=== PATIENT | male | born 1990 | race African-American/Black ===

== ENCOUNTER 2018-12-05 15:46 | Emergency (ER) | payer SELFPAY ==
[~2018-12-05] VITALS: Ht 185.4 cm; Wt 81.6 kg
[2018-12-05] MEDS ORDERED: NKM (16:00)
[2018-12-05] MEDS ORDERED: Metoclopramide 10mg/2ml Inj IVP ONE (16:15)
--- NOTE | 2018-12-05 16:30 | NUR ---
ED Nurse Note: Patient walked in to ER, accompanied by spouse and kid, complaining of abdominal pain. Patient stated that he has been going to the bathroom for loose bowel movement. He stated that the last meal he ate was [employer]. According to the spouse she ates the same meal yesterday. Patient stated pain of 5/10. Nauseated but no episodes of vomiting. Denies abdmonal cramping. Bowel sounds presents in all quadrant. Patient temperature is slightly elevated.
[2018-12-05 17:12] LABS: ANION GAP 5 mmol/L (5-15); BLOOD UREA NITROGEN 11 mg/dL (7-18); CARBON DIOXIDE 30 MMOL/L (21-32); CHLORIDE 106 MMOL/L (98-107); CREATININE 1.2 MG/DL (0.55-1.30); POTASSIUM 4.2 MMOL/L (3.5-5.1); SODIUM 141 MMOL/L (136-145)
[2018-12-05 17:13] LABS: APPEARANCE,URINE CLEAR; BASOPHILS % (AUTO) 2.1 % (0.0-2.0); BILIRUBIN, URINE NEGATIVE (NEGATIVE); COLOR,URINE PALE YELLOW; EOSINOPHILS % (AUTO) 1.1 % (0.0-3.0); GLUCOSE, URINE (UA) NEGATIVE (NEGATIVE); HEMATOCRIT 48.1 % (42.0-52.0); KETONES,URINE NEGATIVE (NEGATIVE); LEUKOCYTE ESTERASE ,URINE NEGATIVE (NEGATIVE); LYMPHOCYTES % (AUTO) 37.8 % (20.0-45.0); MEAN CORPUSCULAR VOLUME 88 FL (80-99); MONOCYTES % (AUTO) 8.5 % (1.0-10.0); NEUTROPHILS % (AUTO) 50.5 % (45.0-75.0); NITRITE,URINE NEGATIVE (NEGATIVE); PH,URINE 7 (4.5-8.0); PLATELET COUNT 172 K/UL (150-450); PROTEIN,URINE NEGATIVE (NEGATIVE); RED BLOOD COUNT 5.47 M/UL (4.70-6.10); RED CELL DISTRIBUTION WIDTH 11.4 % (11.6-14.8); UROBILINOGEN,URINE 1 MG/DL (0.0-1.0); WHITE BLOOD COUNT 3.6 K/UL (4.8-10.8)
[2018-12-05 17:17] LABS: ALANINE AMINOTRANSFERASE 27 U/L (12-78); ALBUMIN 4.2 G/DL (3.4-5.0); ALBUMIN/GLOBULIN RATIO 1.2 (1.0-2.7); ALKALINE PHOSPHATASE 77 U/L (46-116); ASPARTATE AMINO TRANSFERASE 19 U/L (15-37); BILIRUBIN,TOTAL 0.5 MG/DL (0.2-1.0)
[2018-12-05] MEDS ORDERED: Omnipaque-300 100ml vial INJ PRN (17:30)
[2018-12-05 18:01] VITALS: BP 128/64
--- NOTE | 2018-12-05 18:50 | NUR ---
Kaya booker in EDM - 12/05/18 at 1909 by LUIS E ED Nurse Note: Blood/Urine sample collected and sent.
--- NOTE | 2018-12-05 18:56 | Diagnostic Imaging Report ---
Clinical Indication: Diffuse abdominal pain and tightening as well as bouts of nonbloody diarrhea, 7 out of 10 Technique: No oral contrast utilized, per emergency room physician request IV administration nonionic contrast. Venous phase spiral acquisition obtained through the abdomen and pelvis. Multiplanar reconstructions were generated. Total dose length product 1316 mGycm. CTDIvol(s) 22 mGy. Dose reduction achieved using automated exposure control Comparison: none Findings: The appendix is normal. No evidence of diverticulosis or diverticulitis. No small bowel distention. There is trace fluid in the pelvis No free intraperitoneal gas is evident. The distal esophagus, stomach, duodenum are unremarkable. The liver demonstrates scattered subcentimeter low-attenuation lesions which are too small to characterize. Gallbladder, bile ducts, pancreas, spleen, adrenals, kidneys are all unremarkable. No pelvic mass or adenopathy. No retroperitoneal or mesenteric mass or adenopathy. The included lung bases are clear. The bones are unremarkable.. Impression: Trace free pelvic fluid, of uncertain significance but not physiologic in a male patient Otherwise unremarkable This agrees with the preliminary interpretation provided overnight by [facility]. The CT scanner at [facility] is accredited by the [employer] and the scans are performed using protocols designed to limit radiation exposure to as low as reasonably achievable to attain images of sufficient resolution adequate for diagnostic evaluation.
--- NOTE | 2018-12-05 19:01 | Emergency Room Report ---
History of Present Illness General Chief Complaint: Abdominal Pain Source: Patient Present Illness HPI 28-year-old male with no significant past medical history here complaining of diffuse abdominal pain and tightening as well as multiple bouts of nonbloody diarrhea that started last night about an hour after eating orange chicken from [employer]. Patient denies vomiting however complains of being nauseated. Denies fever and chills, chest pain, shortness of breath, palpitation, urinary symptoms. Patient rating the pain 7 out of 10 without radiation. Denies taking any medication for symptom relief. Patient reports that he used to be a former tobacco smoker which he quit long time ago. Patient denies any past surgical history. Patient elicits tenderness in the right lower quadrant however no guarding noted McBurney's and Rovsing's are negative. Patient reports that he has been able to intake oral hydration however has multiple bouts of diarrhea Allergies: Coded Allergies: No Known Allergies (Unverified , 12/05/18) Patient History Past Medical History: see triage record Past Surgical History: unable to obtain Pertinent Family History: none Immunizations: UTD Reviewed Nursing Documentation: PMH: Agreed; PSxH: Agreed Nursing Documentation-PMH Past Medical History: No Stated History Review of Systems All Other Systems: negative except mentioned in HPI Physical Exam Vital Signs Date Time Temp Pulse Resp B/P (MAP) Pulse Ox O2 Delivery O2 Flow Rate FiO2 12/05/18 15:55 99.0 89 18 126/76 (93) 100 Room Air Sp02 EP Interpretation: reviewed, normal General Appearance: no apparent distress, alert, GCS 15, non-toxic Head: normocephalic, atraumatic Eyes: bilateral eye normal inspection, bilateral eye PERRL ENT: hearing grossly normal, normal pharynx, no angioedema, normal voice Neck: full range of motion, supple/symm/no masses Respiratory: chest non-tender, lungs clear, normal breath sounds, speaking full sentences Cardiovascular #1: regular rate, rhythm, no edema, no murmur Gastrointestinal: normal bowel sounds, no mass, no organomegaly, no peritonitis , no bruit, non-distended, no guarding, no rebound, tenderness - RLQ, other - neg Mcburny's and rovsings Rectal: deferred Genitourinary: normal inspection, no CVA tenderness Musculoskeletal: back normal, gait/station normal, normal range of motion, non- tender, no calf tenderness Neurologic: alert, oriented x3, responsive, motor strength/tone normal, sensory intact, speech normal Psychiatric: judgement/insight normal, memory normal, mood/affect normal, no suicidal/homicidal ideation Skin: no rash Lymphatic: no adenopathy Medical Decision Making PA Attestation All my diagnosis and treatment plans were reviewed ad discussed with my supervising physician Dr. Shah Diagnostic Impression: Primary Impression: Acute diarrhea Additional Impression: Food poisoning ER Course 28-year-old male with no significant past medical history here complaining of diffuse abdominal pain and tightening as well as multiple bouts of nonbloody diarrhea that started last night about an hour after eating orange chicken from [employer]. Patient denies vomiting however complains of being nauseated. Denies fever and chills, chest pain, shortness of breath, palpitation, urinary symptoms. Patient rating the pain 7 out of 10 without radiation. Denies taking any medication for symptom relief. Patient reports that he used to be a former tobacco smoker which he quit long time ago. Patient denies any past surgical history. Patient elicits tenderness in the right lower quadrant however no guarding noted McBurney's and Rovsing's are negative. Patient reports that he has been able to intake oral hydration however has multiple bouts of diarrhea Ddx considered but are not limited to: appendicitis, cholecystitis, gastritis, gastroenteritis, UTI, pyelonephritis, SBO, diverticulitis, influenza with GI manifestation, [place], food poisoning, acute diarrhea Vital signs: are WNL, pt. is afebrile H&PE are most consistent with: Acute diarrhea and abdominal pain secondary to food poisoning ORDERS: abdominal CT, abdominal pain set, omeprazole, Zofran, Tylenol ED INTERVENTIONS: NS bolus, Reglan, Pepcid DISCHARGE: At this time pt. is stable for d/c to home. Will provide printed patient care instructions, and any necessary prescriptions. Care plan and follow up instructions have been discussed with the patient prior to discharge. Patient to follow-up with primary care provider at this time no further action is needed the emergency room patient to take medication and keep a BRAT diet and increase oral hydration CT/MRI/US Diagnostic Results CT/MRI/US Diagnostic Results : Imaging Test Ordered: abd pelvis CT w contrast Impression CT ABDOMEN & PELVIS With Contrast: The lung bases are clear Abdominal solid organs, gallbladder and abdominal aorta appear within limits No bowel dilation or free air Normal caliber appendix without surrounding inflammatory change Very small right pelvic free fluid for example coronal 47 and axial 117 is an expected finding, etiology is unclear Bladder appears within limits Last Vital Signs Date Time Temp Pulse Resp B/P (MAP) Pulse Ox O2 Delivery O2 Flow Rate FiO2 12/05/18 18:01 66 18 Room Air 12/05/18 18:01 99.3 128/64 96 Disposition: HOME, SELF-CARE Condition: Stable Scripts Omeprazole (OMEPRAZOLE) 20 Mg Capsule.dr 20 MG ORAL DAILY, #30 CAP Prov: Valente Argueta 12/05/18 Acetaminophen* (TYLENOL EXTRA STRENGTH*) 500 Mg Tablet 500 MG ORAL Q8H PRN for Prn Headache/Temp > 101, #30 TAB 0 Refills Prov: Valente Argueta 12/05/18 Ondansetron (Zofran) 4 Mg Tablet 4 MG ORAL Q6H PRN for Nausea & Vomiting, #12 TAB Prov: Valente Argueta 12/05/18 Referrals: NOT CHOSEN IPA/,REFERRING (PCP) Patient Instructions: Abdominal Pain, Adult, Diarrhea, Adult, [id number] Additional Instructions: Take medication as directed, increase oral hydration keep a BRAT diet. banana, rice, apple sauce, toast, follow-up with your primary care provider and if worsening symptoms return to the emergency room Valente Argueta Dec 05, 2018 19:01
[2018-12-05] MEDS ORDERED: OMEPRAZOLE20 M2 ORAL (19:02)
[2018-12-05] MEDS ORDERED: ZOFRAN4 M1 ORAL (19:02)
[2018-12-05] MEDS ORDERED: TYLENOL EXTRA500 MG ORAL (19:02)
[2018-12-05 19:07] VITALS: BP 104/68
--- NOTE | 2018-12-05 19:09 | NUR ---
ED Nurse Note: Report given to Yomaira, patient resting in bed in guarding positon, no grimacng noted, no respiratory distress noted
--- NOTE | 2018-12-05 19:15 | NUR ---
ER DISCHARGE NOTE: Patient is cleared to be discharged per ERMD, pt is aox4, on room air, with stable vital signs. pt was given dc and prescription instructions, pt was able to verbalize understanding, pt id band and iv site removed without complications. pt is able to ambulate with steady gait. pt took all belongings.
[2018-12-05 19:34] VITALS: BP 104/68
== END 2018-12-05 19:15 | disposition home or self-care (01) ==
LOC: EMR 16:53
DX: T62.8X1A Toxic effect of other specified noxious substances eaten as food, accidental (unintentional), initial encounter (principal); R19.7 Diarrhea, unspecified; Z87.891 Personal history of nicotine dependence; Y92.9 Unspecified place or not applicable
CPT/HCPCS: 36415; 74177; 80053; 80307; 81001; 85025; 96361; 96374; 96375; 99284; J2765; Q9967; S0028